=== PATIENT | female | born 1955 | race Caucasian/White ===

== ENCOUNTER 2023-05-22 06:49 | Observation (INO) | payer OTHER ==
[2023-05-22] MEDS ORDERED: Tranexamic Acid 1,000 MG/10 ML VIAL ONE (07:21)
[2023-05-22] MEDS ORDERED: Vancomycin 1 GM/200 ML (FROZEN) BAG ONE (07:21)
[2023-05-22] MEDS ORDERED: Sodium Chloride 0.9% 100 ML ONE ×2 (07:21→09:38)
[2023-05-22] MEDS ORDERED: Ropivacaine 0.5% HCl/PF (150 MG/30 ML VIAL) ONE (07:47)
[2023-05-22] MEDS ORDERED: fentaNYL 50 mcg/mL 1 mL Vial ONE ×6 (07:47→13:51)
[2023-05-22] MEDS ORDERED: Midazolam HCl 2 mg/2 ml Vial ONE (07:47)
[2023-05-22] MEDS ORDERED: Bupivacaine HCl 0.5%/Epinephrine 1:200,000/PF 30 ml Vial ONE (09:22)
[2023-05-22] MEDS ORDERED: CEFAZOLIN 2 GM VIAL ONE (09:38)
[2023-05-22] MEDS ORDERED: fentaNYL 50 mcg/mL 1 mL Vial SLOW IVP PRN (09:41)
[2023-05-22] MEDS ORDERED: Zolpidem Tartrate 5 MG TAB PO PRN (09:45)
[2023-05-22] MEDS ORDERED: Ropivacaine 0.2% 550 ML 550 ML NERVE BLCK SCH (09:45)
[2023-05-22] MEDS ORDERED: Ondansetron PF 4 MG/2 ML Vial IVP PRN (09:45)
[2023-05-22] MEDS ORDERED: Promethazine HCl 25 MG/ML VIAL IM PRN (09:45)
[2023-05-22] MEDS ORDERED: HYDROcodone/Acetaminophen 10/325 mg Tablet PO PRN ×2 (09:45)
[2023-05-22] MEDS ORDERED: traMADol HCl 50 MG TAB PO PRN ×2 (09:45)
[2023-05-22] MEDS ORDERED: Ondansetron PF 4 MG/2 ML Vial ONE (09:53)
[2023-05-22] MEDS ORDERED: PROPOFOL 200 MG/20 ML VIAL ONE (09:53)
[2023-05-22] MEDS ORDERED: Dexamethasone 20 MG/5 ML VIAL ONE (09:53)
[2023-05-22] MEDS ORDERED: Lidocaine 1% PF 5 ML VIAL ONE (09:53)
[2023-05-22] MEDS ORDERED: diphenhydrAMINE 25 MG CAP PO PRN (13:16)
[2023-05-22] MEDS ORDERED: Acetaminophen 325 MG TAB PO PRN (13:16)
[2023-05-22] MEDS: Ketorolac Tromethamine 30 MG/ML VIAL IVP SCH ×2 (14:54→17:47)
[2023-05-22 15:04] VITALS: BMI 23.3
[2023-05-22] MEDS: Sodium Chloride 0.9% 1,000 ML IV SCH ×2 (16:06→20:48)
[2023-05-22] MEDS: CEFAZOLIN 2 GM in Sodium Chloride 0.9% 100 ML IVPB SCH (17:46)
[2023-05-22] MEDS: Senokot S 8.6-50 MG TAB PO SCH (21:02)
[2023-05-22] MEDS: Ferrous Gluconate 324 MG TAB PO SCH (21:02)
[2023-05-22] MEDS: Aspirin 81 mg Enteric Coated Tablet PO SCH (21:02)
[2023-05-23] MEDS: Ketorolac Tromethamine 30 MG/ML VIAL IVP SCH ×2 (01:06→05:29)
[2023-05-23] MEDS: CEFAZOLIN 2 GM in Sodium Chloride 0.9% 100 ML IVPB SCH (01:07)
[2023-05-23 05:50] LABS: Hematocrit 29.7 % (36.0-47.0); Hemoglobin 10.2 g/dL (12.0-16.0); Mean Corpuscular HGB CONC 34.3 g/dL (32.0-36.0); Mean Corpuscular Hemoglobin 34.9 pg (27.0-31.0); Mean Corpuscular Volume 101.7 fl (78.0-98.0); Mean Platelet Volume 10.3 fL (7.4-10.4); Platelet Count 167 10x3/uL (130-400); RBC Distribution Width 14.3 % (11.5-14.5); Red Blood Cell (RBC) Count 2.92 mill/uL (4.20-5.40); White Blood Cell (WBC) Count 7.4 10x3/uL (4.8-10.8)
[2023-05-23 07:34] VITALS: BP 123/73; TEMP 99.3
[2023-05-23] MEDS: Ferrous Gluconate 324 MG TAB PO SCH (08:30)
[2023-05-23] MEDS: Senokot S 8.6-50 MG TAB PO SCH (08:30)
[2023-05-23] MEDS: Aspirin 81 mg Enteric Coated Tablet PO SCH (08:30)
[2023-05-23] MEDS ORDERED: Multivitamin W/ Minerals 1 TAB PO SCH (09:00)
[2023-05-23] MEDS ORDERED: Hydrochlorothiazide 25 MG TAB PO SCH (09:00)
[2023-05-23] MEDS ORDERED: Losartan 25 MG TAB PO SCH (09:00)
[2023-05-23] MEDS: Sodium Chloride 0.9% 1,000 ML IV SCH (11:30)
== END 2023-05-23 11:00 | disposition home or self-care (01) ==
LOC: EDBD → SDC 06:49 → SURG A 14:50
PROVIDERS: ADMIT Orthopaedic Surgery; ATTEND Orthopaedic Surgery
PROC: 0SRD0JZ Replacement of Left Knee Joint with Synthetic Substitute, Open Approach (ICD-10-PCS; principal; 2023-05-22)
DX: M17.12 Unilateral primary osteoarthritis, left knee (principal); I10 Essential (primary) hypertension; Z79.82 Long term (current) use of aspirin; Z79.899 Other long term (current) drug therapy; Z88.8 Allergy status to other drugs, medicaments and biological substances
CPT/HCPCS: 27447; 73560; 85027; 93005; 97110; 97116 ×2; 97530 ×2; A4306; C1776; J3010; J3370; 36415; 93010; J1100; J1885; J2250; J2405; J2704; J2795; J3490; J7050

== ENCOUNTER 2023-08-10 00:45 | Inpatient (IN) | payer OTHER ==
[2023-08-10 01:30] LABS: #Basophils 0.1 thou/uL (0.0-0.2); #Eosinphils 0.2 thou/uL (0.0-0.7); #Neutrophils 15.3 thou/uL (1.40-6.50); %Basophils 0.5 % (0.0-1.0); %Eosinophils 1.1 % (0.0-10.0); %Monocytes 5.8 % (0.0-10.0); %Neutrophils 84.8 % (42.0-75.0); Hematocrit 40.7 % (36.0-47.0); Hemoglobin 14.2 g/dL (12.0-16.0); Mean Corpuscular HGB CONC 34.9 g/dL (32.0-36.0); Mean Corpuscular Hemoglobin 34.7 pg (27.0-31.0); Mean Corpuscular Volume 99.5 fl (78.0-98.0); Mean Platelet Volume 9.1 fL (7.4-10.4); Platelet Count 206 10x3/uL (130-400); RBC Distribution Width 13.2 % (11.5-14.5); Red Blood Cell (RBC) Count 4.09 mill/uL (4.20-5.40)
[2023-08-10] MEDS ORDERED: Ipratropium/Albuterol 3 ML NEB NEB PRN (01:36)
[2023-08-10] MEDS ORDERED: Ondansetron PF 4 MG/2 ML Vial IVP PRN (01:36)
[2023-08-10] MEDS ORDERED: Morphine 2 MG/ML VIAL SLOW IVP PRN (01:36)
[2023-08-10] MEDS ORDERED: hydrALAZINE 20 MG/ML VIAL SLOW IVP PRN (01:36)
[2023-08-10] MEDS ORDERED: traMADol HCl 50 MG TAB PO PRN (01:38)
[2023-08-10] MEDS ORDERED: Acetaminophen 500 MG TAB PO SCH (01:45)
[2023-08-10 01:58] LABS: ALT (SGPT) 51 U/L (8-55); AST (SGOT) 27 U/L (5-34); Albumin 3.9 g/dL (3.4-4.8); Alkaline Phosphatase 82 U/L (40-110); Anion Gap 15 mmol/L (10-20); BUN (Urea Nitrogen) 17 mg/dL (9.8-20.1); Bilirubin, Total 0.4 mg/dL (0.2-1.2); Calc. Creatinine Clearance 0 mL/min (70-130); Calcium 9.1 mg/dL (7.8-10.44); Carbon Dioxide 26 mmol/L (23-31); Chloride 98 mmol/L (98-107); Estimated GFR 99; Globulin 2.3 g/dL (2.4-3.5); Glucose 106 mg/dL (80-115); Potassium 3.6 mmol/L (3.5-5.1); Protein, Total 6.2 g/dL (5.8-8.1); Sodium 135 mmol/L (136-145)
[2023-08-10] MEDS ORDERED: Morphine 4 MG/ML VIAL ONE (03:00)
[2023-08-10 04:01] VITALS: BMI 26.1
[2023-08-10] MEDS: Sodium Chloride 0.9% 1,000 ML IV SCH ×3 (04:44→18:39)
[2023-08-10 05:37] LABS: #Basophils 0.1 thou/uL (0.0-0.2); #Eosinphils 0.1 thou/uL (0.0-0.7); #Monocytes 0.8 thou/uL (0.11-0.59); #Neutrophils 10.9 thou/uL (1.40-6.50); %Basophils 0.5 % (0.0-1.0); %Eosinophils 0.5 % (0.0-10.0); %Lymphocytes 5.7 % (21.0-51.0); %Monocytes 6.5 % (0.0-10.0); %Neutrophils 86.2 % (42.0-75.0); Hematocrit 39.4 % (36.0-47.0); Hemoglobin 13.7 g/dL (12.0-16.0); Mean Corpuscular HGB CONC 34.8 g/dL (32.0-36.0); Mean Corpuscular Hemoglobin 34.4 pg (27.0-31.0); Mean Platelet Volume 9.5 fL (7.4-10.4); Platelet Count 255 10x3/uL (130-400); RBC Distribution Width 13.1 % (11.5-14.5); Red Blood Cell (RBC) Count 3.98 mill/uL (4.20-5.40); White Blood Cell (WBC) Count 12.6 10x3/uL (4.8-10.8)
[2023-08-10 05:48] LABS: Prothrombin Time 13.5 sec (12.0-14.7)
[2023-08-10 06:08] LABS: Anion Gap 12 mmol/L (10-20); BUN (Urea Nitrogen) 15 mg/dL (9.8-20.1); Calc. Creatinine Clearance 128 mL/min (70-130); Calcium 8.9 mg/dL (7.8-10.44); Carbon Dioxide 28 mmol/L (23-31); Chloride 97 mmol/L (98-107); Estimated GFR 100; Glucose 123 mg/dL (80-115); Potassium 3.5 mmol/L (3.5-5.1); Sodium 133 mmol/L (136-145)
[2023-08-10] MEDS: traMADol HCl 50 MG TAB PO SCH ×3 (06:14→18:38)
[2023-08-10] MEDS: Acetaminophen 500 MG TAB PO SCH ×3 (06:16→18:38)
[2023-08-10 07:12] LABS: Bacteria/HPF None Seen HPF (None Seen); Bilirubin Negative (Negative); Blood, Urine Negative (Negative); CAUTI Indications for Culture Alt mental st,lethar; Clarity Turbid (Clear); Glucose, Urine (Dipstick) Normal (Negative); Ketone, Urine Negative (Negative); Leukocyte Negative Leu/uL (Negative); Nitrite Negative (Negative); Protein, Urine (Dipstick) Negative (Neg-Trace); RBC/HPF 0-3 HPF (0-3); Specific Gravity, Urine 1.017 (1.002-1.036); Squamous Epithelial None Seen HPF (0-3); Urobilinogen Normal mg/dL (Less than 2); WBC/HPF 0-3 HPF (0-3); pH, Urine 7.5 (5.0-9.0)
[2023-08-10 07:15] LABS: Urine Culture Reflex No No
[2023-08-10] MEDS ORDERED: CEFAZOLIN 2 GM in Sodium Chloride 0.9% 100 ML IVPB SCH (07:30)
[2023-08-10] MEDS: Polyethylene Glycol 3350 17 GM Packet PO SCH (08:44)
[2023-08-10] MEDS: Senokot S 8.6-50 MG TAB PO SCH (08:44)
[2023-08-10] MEDS: Famotidine/PF 20 mg/2ml Vial SLOW IVP SCH ×2 (08:49→22:03)
[2023-08-10] MEDS ORDERED: FLU VACC QS2023(65UP)/MF59C/PF 60 MCG/0.5 ML SYRINGE IM ONE (09:00)
[2023-08-10] MEDS ORDERED: fentaNYL PF 100 MCG/2 ML SYRINGE ONE (11:51)
[2023-08-10] MEDS ORDERED: CEFAZOLIN 2 GM VIAL ONE (13:05)
[2023-08-10] MEDS ORDERED: Sodium Chloride 0.9% 100 ML ONE (13:05)
[2023-08-10] MEDS ORDERED: NEOSTIGMINE 3 MG/3 ML SYR 3 MG/3 ML SYRINGE ONE (14:14)
[2023-08-10] MEDS ORDERED: ePHEDrine Sulfate 50 MG/10 ML VIAL ONE (14:14)
[2023-08-10] MEDS ORDERED: Rocuronium Bromide 10 MG/ML (10ML VIAL) ONE (14:14)
[2023-08-10] MEDS ORDERED: Lidocaine 1% PF 5 ML VIAL ONE (14:14)
[2023-08-10] MEDS ORDERED: PROPOFOL 200 MG/20 ML VIAL ONE (14:14)
[2023-08-10] MEDS ORDERED: Glycopyrrolate 0.2 MG/ML 5 ML SYRINGE ONE (14:14)
[2023-08-10] MEDS ORDERED: SUGAMMADEX SODIUM 200 MG/2 ML VIAL ONE (15:37)
[2023-08-10] MEDS ORDERED: Ondansetron HCl/PF 4 MG/2 ML Vial IVP PRN (15:51)
[2023-08-10] MEDS ORDERED: Promethazine HCl 25 MG/ML VIAL IM PRN (15:51)
[2023-08-10] MEDS ORDERED: fentaNYL 50 mcg/mL 1 mL Vial ONE (16:26)
[2023-08-10] MEDS: CEFAZOLIN 2 GM in Sodium Chloride 0.9% 100 ML IVPB SCH (22:03)
[2023-08-11] MEDS: Senokot S 8.6-50 MG TAB PO SCH ×3 (05:18→20:07)
[2023-08-11 06:29] LABS: #Basophils 0.1 thou/uL (0.0-0.2); #Eosinphils 0.1 thou/uL (0.0-0.7); #Neutrophils 7.2 thou/uL (1.40-6.50); %Eosinophils 1.5 % (0.0-10.0); %Lymphocytes 10.9 % (21.0-51.0); %Monocytes 10.2 % (0.0-10.0); Hematocrit 34.1 % (36.0-47.0); Hemoglobin 11.7 g/dL (12.0-16.0); Mean Corpuscular HGB CONC 34.3 g/dL (32.0-36.0); Mean Corpuscular Hemoglobin 34.3 pg (27.0-31.0); Mean Platelet Volume 9.7 fL (7.4-10.4); Platelet Count 216 10x3/uL (130-400); RBC Distribution Width 13.3 % (11.5-14.5); Red Blood Cell (RBC) Count 3.41 mill/uL (4.20-5.40); White Blood Cell (WBC) Count 9.4 10x3/uL (4.8-10.8)
[2023-08-11] MEDS: traMADol HCl 50 MG TAB PO SCH ×5 (06:49→17:18)
[2023-08-11] MEDS: CEFAZOLIN 2 GM in Sodium Chloride 0.9% 100 ML IVPB SCH ×2 (06:49→14:32)
[2023-08-11] MEDS: Sodium Chloride 0.9% 1,000 ML IV SCH ×2 (06:52→11:58)
[2023-08-11] MEDS: Acetaminophen 500 MG TAB PO SCH ×6 (06:52→23:58)
[2023-08-11] MEDS: Polyethylene Glycol 3350 17 GM Packet PO SCH (09:08)
[2023-08-11] MEDS: Famotidine/PF 20 mg/2ml Vial SLOW IVP SCH ×2 (09:08→20:07)
[2023-08-11] MEDS ORDERED: Ibuprofen 200 MG TAB PO PRN (14:44)
[2023-08-11] MEDS: Gabapentin 100 MG CAP PO SCH (20:07)
[2023-08-12] MEDS: Acetaminophen 500 MG TAB PO SCH (05:31)
[2023-08-12] MEDS: Senokot S 8.6-50 MG TAB PO SCH ×2 (08:42→21:29)
[2023-08-12] MEDS: Famotidine/PF 20 mg/2ml Vial SLOW IVP SCH ×2 (08:43→21:28)
[2023-08-12] MEDS: Polyethylene Glycol 3350 17 GM Packet PO SCH (08:43)
[2023-08-12] MEDS: Gabapentin 100 MG CAP PO SCH ×2 (08:53→21:27)
[2023-08-12 09:47] LABS: #Basophils 0.1 thou/uL (0.0-0.2); #Eosinphils 0.2 thou/uL (0.0-0.7); #Monocytes 0.9 thou/uL (0.11-0.59); #Neutrophils 6.1 thou/uL (1.40-6.50); %Eosinophils 2.3 % (0.0-10.0); %Lymphocytes 15.4 % (21.0-51.0); %Monocytes 10.6 % (0.0-10.0); %Neutrophils 70.1 % (42.0-75.0); Hematocrit 33.8 % (36.0-47.0); Hemoglobin 11.3 g/dL (12.0-16.0); Mean Corpuscular HGB CONC 33.4 g/dL (32.0-36.0); Mean Corpuscular Hemoglobin 33.8 pg (27.0-31.0); Mean Corpuscular Volume 101.2 fl (78.0-98.0); Mean Platelet Volume 9.3 fL (7.4-10.4); Platelet Count 203 10x3/uL (130-400); RBC Distribution Width 13.4 % (11.5-14.5); Red Blood Cell (RBC) Count 3.34 mill/uL (4.20-5.40); White Blood Cell (WBC) Count 8.6 10x3/uL (4.8-10.8)
[2023-08-12] MEDS ORDERED: Acetaminophen/Codeine 30-300mg Tablet PO PRN (10:37)
[2023-08-12] MEDS: Acetaminophen 325 MG TAB PO SCH ×2 (11:59→18:45)
[2023-08-12] MEDS: Aspirin 81 mg Enteric Coated Tablet PO SCH (21:27)
[2023-08-13] MEDS: Acetaminophen 325 MG TAB PO SCH ×4 (00:22→18:08)
[2023-08-13 06:51] LABS: #Basophils 0.1 thou/uL (0.0-0.2); #Eosinphils 0.3 thou/uL (0.0-0.7); #Monocytes 0.7 thou/uL (0.11-0.59); #Neutrophils 5.7 thou/uL (1.40-6.50); %Eosinophils 3.4 % (0.0-10.0); %Lymphocytes 14.4 % (21.0-51.0); %Neutrophils 71.8 % (42.0-75.0); Hematocrit 33.2 % (36.0-47.0); Hemoglobin 11.4 g/dL (12.0-16.0); Mean Corpuscular HGB CONC 34.3 g/dL (32.0-36.0); Mean Corpuscular Hemoglobin 34.4 pg (27.0-31.0); Mean Corpuscular Volume 100.3 fl (78.0-98.0); Mean Platelet Volume 9.5 fL (7.4-10.4); Platelet Count 218 10x3/uL (130-400); RBC Distribution Width 13.2 % (11.5-14.5); Red Blood Cell (RBC) Count 3.31 mill/uL (4.20-5.40)
[2023-08-13] MEDS: Aspirin 81 mg Enteric Coated Tablet PO SCH ×2 (08:55→21:00)
[2023-08-13] MEDS: Senokot S 8.6-50 MG TAB PO SCH ×2 (08:55→21:00)
[2023-08-13] MEDS: Polyethylene Glycol 3350 17 GM Packet PO SCH (08:57)
[2023-08-13] MEDS: Gabapentin 100 MG CAP PO SCH ×2 (08:58→21:00)
[2023-08-13] MEDS ORDERED: Sodium Chloride 1 GM TAB PO SCH (09:00)
[2023-08-13] MEDS: Famotidine 20 MG TAB PO SCH ×2 (09:07→21:00)
[2023-08-13 09:21] LABS: ALT (SGPT) 17 U/L (8-55); AST (SGOT) 14 U/L (5-34); Albumin 3.2 g/dL (3.4-4.8); Alkaline Phosphatase 68 U/L (40-110); Anion Gap 12 mmol/L (10-20); BUN (Urea Nitrogen) 12 mg/dL (9.8-20.1); Bilirubin, Total 0.3 mg/dL (0.2-1.2); Calc. Creatinine Clearance 146 mL/min (70-130); Calcium 8.5 mg/dL (7.8-10.44); Carbon Dioxide 25 mmol/L (23-31); Chloride 103 mmol/L (98-107); Estimated GFR 103; Globulin 2.6 g/dL (2.4-3.5); Glucose 105 mg/dL (80-115); Potassium 3.7 mmol/L (3.5-5.1); Protein, Total 5.8 g/dL (5.8-8.1); Sodium 136 mmol/L (136-145)
[2023-08-14] MEDS: Acetaminophen 325 MG TAB PO SCH ×4 (00:43→18:09)
[2023-08-14 06:13] LABS: Anion Gap 11 mmol/L (10-20); BUN (Urea Nitrogen) 14 mg/dL (9.8-20.1); Calc. Creatinine Clearance 148 mL/min (70-130); Calcium 8.7 mg/dL (7.8-10.44); Carbon Dioxide 28 mmol/L (23-31); Chloride 103 mmol/L (98-107); Estimated GFR 103; Glucose 94 mg/dL (80-115); Sodium 138 mmol/L (136-145)
[2023-08-14] MEDS: Gabapentin 100 MG CAP PO SCH (08:10)
[2023-08-14] MEDS: Famotidine 20 MG TAB PO SCH ×2 (08:10→20:47)
[2023-08-14] MEDS: Aspirin 81 mg Enteric Coated Tablet PO SCH ×2 (08:10→20:47)
[2023-08-14] MEDS: Senokot S 8.6-50 MG TAB PO SCH ×2 (08:10→21:28)
[2023-08-14] MEDS: Polyethylene Glycol 3350 17 GM Packet PO SCH (08:10)
[2023-08-14] MEDS ORDERED: Dexamethasone 4 mg/ml Vial SLOW IVP SCH (13:00)
[2023-08-14] MEDS: Dexamethasone 4 mg/ml Vial SLOW IVP SCH (20:47)
[2023-08-15] MEDS: Acetaminophen 325 MG TAB PO SCH ×4 (00:46→17:24)
[2023-08-15] MEDS: Senokot S 8.6-50 MG TAB PO SCH ×2 (08:58→20:37)
[2023-08-15] MEDS: Polyethylene Glycol 3350 17 GM Packet PO SCH (08:58)
[2023-08-15] MEDS: Dexamethasone 4 mg/ml Vial SLOW IVP SCH ×2 (09:40→20:36)
[2023-08-15] MEDS: Aspirin 81 mg Enteric Coated Tablet PO SCH ×2 (09:41→20:36)
[2023-08-15] MEDS: Pantoprazole 40 MG VIAL IVP SCH (09:41)
[2023-08-16] MEDS: Acetaminophen 325 MG TAB PO SCH ×4 (00:26→18:14)
[2023-08-16] MEDS: Senokot S 8.6-50 MG TAB PO SCH ×2 (09:45→21:30)
[2023-08-16] MEDS: Dexamethasone 4 mg/ml Vial SLOW IVP SCH ×2 (09:45→21:43)
[2023-08-16] MEDS: Aspirin 81 mg Enteric Coated Tablet PO SCH ×2 (09:45→21:30)
[2023-08-16] MEDS: Polyethylene Glycol 3350 17 GM Packet PO SCH (09:46)
[2023-08-16] MEDS: Pantoprazole 40 MG VIAL IVP SCH (09:46)
[2023-08-17] MEDS: Acetaminophen 325 MG TAB PO SCH ×5 (04:44→17:37)
[2023-08-17] MEDS: Dexamethasone 4 MG TAB PO SCH ×2 (08:45→21:51)
[2023-08-17] MEDS: Polyethylene Glycol 3350 17 GM Packet PO SCH (08:46)
[2023-08-17] MEDS: Aspirin 81 mg Enteric Coated Tablet PO SCH ×2 (08:46→21:51)
[2023-08-17] MEDS: Senokot S 8.6-50 MG TAB PO SCH ×2 (08:46→16:46)
[2023-08-18] MEDS: Acetaminophen 325 MG TAB PO SCH ×4 (00:22→17:22)
[2023-08-18] MEDS: Senokot S 8.6-50 MG TAB PO SCH (08:40)
[2023-08-18] MEDS: Polyethylene Glycol 3350 17 GM Packet PO SCH (08:40)
[2023-08-18] MEDS: Aspirin 81 mg Enteric Coated Tablet PO SCH (08:40)
[2023-08-18] MEDS: Dexamethasone 4 MG TAB PO SCH (08:40)
[2023-08-18 17:23] VITALS: BP 136/83; TEMP 98.6
== END 2023-08-18 19:05 | DRG 521 ==
LOC: ERS 00:45 → SURG B 01:36
PROVIDERS: ADMIT Surgery; ATTEND Surgery
PROC: 0SRS0JZ Replacement of Left Hip Joint, Femoral Surface with Synthetic Substitute, Open Approach (ICD-10-PCS; principal; 2023-08-10)
PROC: 3E033XZ Introduction of Vasopressor into Peripheral Vein, Percutaneous Approach (ICD-10-PCS; 2023-08-10)
DX: S72.032A Displaced midcervical fracture of left femur, initial encounter for closed fracture (principal); G93.6 Cerebral edema; C71.9 Malignant neoplasm of brain, unspecified; I10 Essential (primary) hypertension; M19.90 Unspecified osteoarthritis, unspecified site; G89.11 Acute pain due to trauma; F10.90 Alcohol use, unspecified, uncomplicated; R29.898 Other symptoms and signs involving the musculoskeletal system; Z96.652 Presence of left artificial knee joint; W18.30XA Fall on same level, unspecified, initial encounter; Z98.49 Cataract extraction status, unspecified eye; Z98.890 Other specified postprocedural states; Z79.899 Other long term (current) drug therapy; Z88.8 Allergy status to other drugs, medicaments and biological substances
CPT/HCPCS: 36415; 70450; 71045; 80048; 80053; 81001; 85025; 85610; 85730; 86850; 86900; 86901; 93005; 96374; C1776; C9113; J1100; J2270; J2704; J3010; J3490; J7050; J8540; S0028

== ENCOUNTER 2023-08-30 13:29 | Outpatient (CLI) | payer OTHER | END 2023-08-30 13:30 | disposition home or self-care (01) | LOC: SCSMRI 13:29 | PROVIDERS: ATTEND Radiology Radiation Oncology | DX: C71.1 Malignant neoplasm of frontal lobe (principal); Z98.890 Other specified postprocedural states | CPT/HCPCS: 70553 ==

== ENCOUNTER 2023-09-21 11:00 | Emergency (ER) | payer OTHER ==
[2023-09-21 11:47] LABS: #Monocytes 0.5 thou/uL (0.11-0.59); #Neutrophils 10.2 thou/uL (1.40-6.50); %Basophils 0.2 % (0.0-1.0); %Eosinophils 0.1 % (0.0-10.0); %Lymphocytes 5.7 % (21.0-51.0); %Monocytes 4.3 % (0.0-10.0); %Neutrophils 88.6 % (42.0-75.0); Hematocrit 39.9 % (36.0-47.0); Hemoglobin 13.2 g/dL (12.0-16.0); Mean Corpuscular HGB CONC 33.1 g/dL (32.0-36.0); Mean Corpuscular Hemoglobin 34.1 pg (27.0-31.0); Mean Corpuscular Volume 103.1 fl (78.0-98.0); Platelet Count 261 10x3/uL (130-400); RBC Distribution Width 15.5 % (11.5-14.5); Red Blood Cell (RBC) Count 3.87 mill/uL (4.20-5.40); White Blood Cell (WBC) Count 11.5 10x3/uL (4.8-10.8)
[2023-09-21 12:10] LABS: ALT (SGPT) 29 U/L (8-55); AST (SGOT) 20 U/L (5-34); Albumin 3.5 g/dL (3.4-4.8); Alkaline Phosphatase 73 U/L (40-110); Anion Gap 13 mmol/L (10-20); BUN (Urea Nitrogen) 16 mg/dL (9.8-20.1); Bilirubin, Total 0.7 mg/dL (0.2-1.2); Calc. Creatinine Clearance 0 mL/min (70-130); Calcium 8.5 mg/dL (7.8-10.44); Carbon Dioxide 26 mmol/L (23-31); Chloride 99 mmol/L (98-107); Estimated GFR 97; Globulin 2.8 g/dL (2.4-3.5); Glucose 98 mg/dL (80-115); Lipase 97 U/L (8-78); Protein, Total 6.3 g/dL (5.8-8.1); Sodium 134 mmol/L (136-145)
[2023-09-21 12:13] LABS: Troponin I 0.016 ng/mL (< 0.028)
[2023-09-21] MEDS ORDERED: Atropine Sulfate 1 mg/10 ml Syringe ONE (12:28)
[2023-09-21] MEDS ORDERED: Iopamidol-370 76% 500 ML MDV (1 ML CHARGE) ONE (13:42)
[2023-09-21 13:59] LABS: Bacteria/HPF None Seen HPF (None Seen); Bilirubin Negative (Negative); Blood, Urine Negative (Negative); CAUTI Indications for Culture Dysuria,urgency,freq; Clarity Clear (Clear); Glucose, Urine (Dipstick) Normal (Negative); Ketone, Urine Negative (Negative); Leukocyte Negative Leu/uL (Negative); Nitrite Negative (Negative); Protein, Urine (Dipstick) Negative (Neg-Trace); RBC/HPF 0-3 HPF (0-3); Specific Gravity, Urine 1.017 (1.002-1.036); Squamous Epithelial None Seen HPF (0-3); Urobilinogen Normal mg/dL (Less than 2); WBC/HPF 0-3 HPF (0-3); pH, Urine 7.5 (5.0-9.0)
[2023-09-21] MEDS ORDERED: Glycerin Adult Supp. (12 ct jar) RC SCH (14:00)
[2023-09-21] MEDS ORDERED: Magnesium Citrate 300 ML BOT ONE (14:02)
[2023-09-21 14:22] LABS: Urine Culture Reflex No No
== END 2023-09-21 17:10 | disposition home or self-care (01) ==
LOC: ERS 11:00
DX: K56.41 Fecal impaction (principal); I10 Essential (primary) hypertension
CPT/HCPCS: 71045; 74177; 80053; 81001; 83605; 83690; 83880; 84484; 85025; 93005; J0461; 36415; 96372; Q9967

== ENCOUNTER 2023-10-04 15:44 | Outpatient (CLI) | payer OTHER | END 2023-10-04 15:45 | disposition home or self-care (01) | LOC: ULT 15:44 | PROVIDERS: ATTEND Radiology Radiation Oncology | DX: M79.89 Other specified soft tissue disorders (principal); C71.9 Malignant neoplasm of brain, unspecified; R60.0 Localized edema; M71.22 Synovial cyst of popliteal space [Baker], left knee ==